=== PATIENT | female | born 1960 | race Hispanic/Latino ===

== ENCOUNTER 2016-11-23 21:01 | Emergency (ER) | payer OTHER ==
[~2016-11-23] VITALS: Ht 162.6 cm; Wt 71.0 kg
[2016-11-23] MEDS ORDERED: EC-NAPROSYN500 MG PO (22:00)
[2016-11-23] MEDS ORDERED: LORTAB 5-325 MG1 TAB PO (22:00)
[2016-11-23 22:10] VITALS: BP 139/75
== END 2016-11-23 22:15 | disposition home or self-care (01) | DRG 563 ==
LOC: ED 21:01
DX: S62.303A Unspecified fracture of third metacarpal bone, left hand, initial encounter for closed fracture (principal); V43.52XA Car driver injured in collision with other type car in traffic accident, initial encounter